=== PATIENT | male | born 1945 | race American Indian/Alaskan Native ===

== ENCOUNTER 2021-11-24 18:25 | Observation (INO) | payer OTHER, MEDICARE ==
[2021-11-25] MEDS ORDERED: ASPIRIN 325 MG TAB PO ONE (03:30)
[2021-11-25] MEDS ORDERED: ONDANSETRON 4 MG/2 ML INJ IV ONE (03:31)
[2021-11-25] MEDS ORDERED: MORPHINE 4 MG/1 ML INJ IV ONE (03:31)
[2021-11-25] MEDS ORDERED: PANTOPRAZOLE 40 MG INJ IV ONE (03:31)
--- NOTE | 2021-11-25 03:37 | Emergency Department Report ---
ED Chest Pain HPI - General Chief Complaint: Chest Pain Stated Complaint: Right shoulder pain, and chest pain Time Seen by Provider: 11/25/21 03:21 Source: patient, EMS ( EMS documentation not available at time of chart dictation ), RN notes reviewed Mode of arrival: Stretcher Limitations: No Limitations - History of Present Illness Initial Comments: This is a pleasant and cooperative 76-year-old gentleman, who reports a history of CAD, with stent, possible hypertension and high cholesterol. He presents to the department today with complaint of right-sided shoulder pain, that radiates to his whole chest and right neck. He denies travel, surgery, immobilization, DVT and pulmonary embolism risk factors. He does report that he smokes cigarettes as well as marijuana. He denies other illicit drug use. Right-sided arm pain and shoulder pain have been going on for some time, but he feels like it got worse recently. The patient reports that he has not done heavy lifting. He denies COVID symptoms. MD Complaint: chest pain -: Gradual Onset: during rest Pain Location: substernal, right chest Pain Radiation: other (Right arm to chest) Severity: moderate Quality: aching Consistency: intermittent Improves With: nitroglycerin Worsens With: nothing Aspirin use within the Past 7 Days: (1) Yes - Related Data Allergies Allergy/AdvReac Type Severity Reaction Status Date / Time No Known Allergies Allergy Unverified 11/24/21 20:02 Heart Score - HEART Score History: Slightly suspicious EKG: Non-specific Age: > 65 Risk factors: > 3 risk factors or hx of atherosclerotic disease Troponin: < normal limit HEART Score: 5 - EKG Read Time Time EKG Completed: 02:12 EKG Read Time: 02:12 - Critical Actions Critical Actions: 4-6 pts:12-16.6% risk of adverse cardiac event. Should be admitted ED Review of Systems ROS: Stated complaint: LT SHOULDER PAIN Other details as noted in HPI Constitutional: denies: fever Eyes: denies: eye discharge ENT: denies: epistaxis Respiratory: denies: wheezing Cardiovascular: chest pain Gastrointestinal: denies: abdominal pain, hematemesis, melena, hematochezia Musculoskeletal: arthralgia, myalgia Neurological: denies: weakness Hematological/Lymphatic: denies: easy bleeding ED Physical Exam - General Limitations: No Limitations General appearance: alert, in no apparent distress - Head Head exam: Present: atraumatic, normocephalic - Eye Eye exam: Present: normal appearance, EOMI. Absent: nystagmus - ENT ENT exam: Present: normal exam, normal orophraynx, mucous membranes moist, normal external ear exam - Neck Neck exam: Present: normal inspection, full ROM. Absent: tenderness, meningismus - Respiratory Respiratory exam: Present: normal lung sounds bilaterally. Absent: respiratory distress, wheezes, rales, rhonchi, stridor - Cardiovascular Cardiovascular Exam: Present: normal rhythm, bradycardia, normal heart sounds. Absent: tachycardia, irregular rhythm, systolic murmur, diastolic murmur, rubs, gallop - GI/Abdominal GI/Abdominal exam: Present: soft. Absent: distended, tenderness, guarding, rebound, rigid, pulsatile mass - Rectal Rectal exam: Present: deferred - Extremities Exam Extremities exam: Present: normal inspection, full ROM (Left arm, and bilateral lower extremities), tenderness (The right shoulder is point tender. There is no redness, pus or streaking), other (2+ pulses noted in the bilateral upper and lower extremities. There is no palpable cord. negative Homans sign. Muscular compartments are soft. The pelvis is stable.). Absent: calf tenderness - Back Exam Back exam: Present: normal inspection. Absent: tenderness, CVA tenderness (R), CVA tenderness (L), paraspinal tenderness, vertebral tenderness - Neurological Exam Neurological exam: Present: alert, oriented X3, normal gait, other (No facial droop. Tongue midline. Extraocular movements intact bilaterally. Facial sensation intact to light touch in V1, V2, V3 distribution bilaterally. 5 and a 5 strength in 4 extremities. Sensation intact to light touch in 4 extremities.). Absent: motor sensory deficit - Psychiatric Psychiatric exam: Present: normal affect, normal mood - Skin Skin exam: Present: warm, dry, intact, normal color. Absent: rash ED Course Vital Signs 11/24/21 11/25/21 11/25/21 19:59 02:08 04:14 Temperature 98.1 F 97.8 F Pulse Rate 58 L 54 L Respiratory 16 18 Rate Blood Pressure 180/98 Blood Pressure 161/83 [Left] O2 Sat by Pulse 99 99 100 Oximetry - Reevaluation(s) Reevaluation #1: 11/25/21 03:36 Differential diagnosis, including not limited to: Arthritis, radiculopathy, EMIGDIO D, gastritis, hiatal hernia, pneumonia, costochondritis, coronary artery disease Assessment and plan: 76-year-old gentleman, who is pleasant, calm and cooperative, [id number], in no acute distress, with acute on chronic reproducible right-sided shoulder and chest wall pain, abnormal EKG, and multiple cardiovascular risk factors. He is not currently tachycardic, tachypneic or hypoxic, he denies DVT and pulmonary embolism risk factors, and he is low risk by Wells criteria for pulmonary embolism. He has equal pulses in the upper lower extremities, with no pulsatile abdominal mass. Highly doubt acute aortic pathology. Chest pain very atypical, however, given age, risk factor profile, abnormal EKG without prior for comparison, he is at moderate risk for major adverse cardiac event as per heart score. Treat symptoms, obtain EKGs, laboratory studies, x-ray the chest, and reassess. Recommend admission to the medical service for cardiac risk stratification. Discussed this plan of care with the patient. He is agreeable to the plan of care Reevaluation #2: 11/25/21 03:37 Hold nitroglycerin given bradycardia 11/25/21 04:42 Patient on cell phone and in no acute distress. 11/25/21 05:15 Dr Rosa John to admit to [facility] MICHAEL score - Michael Score Age > 65: (1) Yes Aspirin use within the Past 7 Days: (1) Yes 3 or more CAD Risk Factors: (1) Yes 2 or more Angina events in past 24 hrs: (0) No Known CAD with more than 50% Stenosis: (0) No Elevated Cardiac Markers: (0) No ST Deviation Greater than 0.5mm: (0) No MICHAEL Score: 3 ED Medical Decision Making - Lab Data Result diagrams: 11/25/21 03:45 11/25/21 03:45 Vital Signs 11/24/21 11/25/21 19:59 02:08 Temperature 98.1 F 97.8 F Pulse Rate 58 L 54 L Respiratory 16 18 Rate Blood Pressure 180/98 Blood Pressure 161/83 [Left] O2 Sat by Pulse 99 99 Oximetry Lab Results 11/25/21 11/25/21 11/25/21 Range/Units 03:45 03:45 03:45 WBC 5.7 (4.5-11.0) K/mm3 RBC 4.90 (3.65-5.03) M/mm3 Hgb 13.9 (11.8-15.2) gm/dl Hct 42.4 (35.5-45.6) % MCV 86 (84-94) fl MCH 28 (28-32) pg MCHC 33 (32-34) % RDW 17.9 H (13.2-15.2) % Plt Count 175 (140-440) K/mm3 Lymph % (Auto) 27.7 (13.4-35.0) % Levy % (Auto) 11.1 H (0.0-7.3) % Eos % (Auto) 2.6 (0.0-4.3) % Baso % (Auto) 0.8 (0.0-1.8) % Lymph # (Auto) 1.6 (1.2-5.4) K/mm3 Levy # (Auto) 0.6 (0.0-0.8) K/mm3 Eos # (Auto) 0.1 (0.0-0.4) K/mm3 Baso # (Auto) 0.0 (0.0-0.1) K/mm3 Seg Neutrophils % 57.8 (40.0-70.0) % Seg Neutrophils # 3.3 (1.8-7.7) K/mm3 PT 12.8 (12.2-14.9) Sec. INR 0.85 L (0.87-1.13) Sodium 141 (137-145) mmol/L Potassium 3.8 (3.6-5.0) mmol/L Chloride 101.8 (98-107) mmol/L Carbon Dioxide 25 (22-30) mmol/L Anion Gap 18 mmol/L BUN 20 (9-20) mg/dL Creatinine 1.2 (0.8-1.3) mg/dL Estimated GFR > 60 ml/min BUN/Creatinine Ratio 17 % Glucose 85 (75-100) mg/dL Calcium 9.7 (8.4-10.2) mg/dL Magnesium 1.70 (1.7-2.3) mg/dL Total Bilirubin 0.70 (0.1-1.2) mg/dL AST 16 (5-40) units/L ALT 9 (7-56) units/L Alkaline Phosphatase 60 (35-129) units/L Total Creatine Kinase 85 (55-170) units/L Troponin T < 0.010 (0.00-0.029) ng/mL Total Protein 6.8 (6.3-8.2) g/dL Albumin 4.6 (3.9-5) g/dL Albumin/Globulin Ratio 2.1 % - EKG Data -: EKG Interpreted by Me Rate: bradycardia - EKG Data When compared to previous EKG there are: previous EKG unavailable 11/25/21 03:35 There is no prior EKG available for comparison. The EKG is interpreted at 02: 1 2 AM. Sinus rhythm, bradycardia, with a rate of 48 bpm. Left axis deviation. QTc 4 2 6 ms. Borderline incomplete left bundle branch block. Abnormal EKG. This is a STEMI. - Radiology Data Radiology results: pending, report reviewed, image reviewed CHEST 1 VIEW 11/25/2021 3:40 AM INDICATION / CLINICAL INFORMATION: Chest Pain. COMPARISON: None available. FINDINGS: SUPPORT DEVICES: None. HEART / MEDIASTINUM: No significant abnormality. LUNGS / PLEURA: No significant pulmonary or pleural abnormality. No pneumothorax. ADDITIONAL FINDINGS: None IMPRESSION: 1. No acute chest process. Signer Name: Hima Acevedo MD Signed: 11/25/2021 2:47 AM Workstation Name: [employer] Critical care attestation.: If time is entered above; I have spent that time in minutes in the direct care of this critically ill patient, excluding procedure time. ED Disposition Clinical Impression: Nonspecific chest pain Disposition: ADMITTED INPATIENT Is pt being admited?: Yes Does the pt Need Aspirin: No Condition: Good Instructions: Nonspecific Chest Pain, Adult Referrals: PRIMARY CARE, [Primary Care Provider] - 3-5 Days
--- NOTE | 2021-11-25 03:51 | XRay Report ---
CHEST 1 VIEW 11/25/2021 3:40 AM INDICATION / CLINICAL INFORMATION: Chest Pain. COMPARISON: None available. FINDINGS: SUPPORT DEVICES: None. HEART / MEDIASTINUM: No significant abnormality. LUNGS / PLEURA: No significant pulmonary or pleural abnormality. No pneumothorax. ADDITIONAL FINDINGS: None IMPRESSION: 1. No acute chest process. Signer Name: Hima Acevedo MD Signed: 11/25/2021 3:47 AM Workstation Name: [email or web address]
[2021-11-25 04:29] LABS: Basophils % (Auto) 0.8 % (0.0-1.8); Eosinophils # (Auto) 0.1 K/mm3 (0.0-0.4); Eosinophils % (Auto) 2.6 % (0.0-4.3); Hematocrit 42.4 % (35.5-45.6); Hemoglobin 13.9 gm/dl (11.8-15.2); Lymphocytes # (Auto) 1.6 K/mm3 (1.2-5.4); Lymphocytes % (Auto) 27.7 % (13.4-35.0); Mean Corpuscular HGB Conc 33 % (32-34); Mean Corpuscular Volume 86 fl (84-94); Monocytes # (Auto) 0.6 K/mm3 (0.0-0.8); Monocytes % (Auto) 11.1 % (0.0-7.3); Platelet Count 175 K/mm3 (140-440); Red Cell Distribution Width 17.9 % (13.2-15.2)
[2021-11-25 04:39] LABS: INR 0.85 (0.87-1.13)
[2021-11-25 04:42] LABS: Alanine Aminotransferase 9 units/L (7-56); Albumin 4.6 g/dL (3.9-5); BUN/Creatinine Ratio 17; Blood Urea Nitrogen 20 mg/dL (9-20); Calcium 9.7 mg/dL (8.4-10.2); Hemolysis Index 9
[2021-11-25] MEDS ORDERED: ONDANSETRON 4 MG/2 ML INJ IV PRN (05:15)
[2021-11-25] MEDS ORDERED: ACETAMINOPHEN 325 MG TAB PO PRN (05:15)
[2021-11-25] MEDS ORDERED: NALOXONE 0.4 MG/1 ML INJ IV PRN (05:15)
[2021-11-25] MEDS ORDERED: MORPHINE 4 MG/1 ML INJ IV PRN (08:11)
[2021-11-25] MEDS ORDERED: oxyCODONE /ACETAMINOPHEN 5-325MG TAB PO PRN (09:00)
[2021-11-25] MEDS ORDERED: MORPHINE 2 MG/1 ML INJ IV PRN (09:00)
[2021-11-25] MEDS ORDERED: REGADENOSON 0.4 MG/5 ML INJ IV ONE (10:24)
[2021-11-25] MEDS ORDERED: DOBUTamine 100 MG in DEXTROSE 5% IN WATER 92 ML IV ONE (12:00)
--- NOTE | 2021-11-25 13:19 | Nuclear Medicine Report ---
APPROVED REPORT Exam: Nuclear Stress Test Indication: Chest pain BMI: 0 Stress Test Details HR Max Heart Rate (APMHR): 145 bpm Target HR (85% APMHR): 123 bpm BP ECG Resting ECG: Sinus Bradycardia Stress ECG: Sinus Rhythm ST Change: None Arrhythmia: None Recovery ECG: Sinus Rhythm Recovery Arrhythmia: None Clinical Reason for Termination: Completed protocol Stress ECG Conclusion Patient had a dobutamine stress test during which he was administered with 5 to 20 mcg of dobutamine and graded increments. ECG and blood pressure were monitored through the infusion. There was no chest pain, no ST changes of ischemia and no dysrhythmias. Thallium was injected at peak dobutamine infusion. The patient then underwent protocol stress imaging. NM EXAM: Myocardial Perfusion REST/STRESS Imaging Protocol: Rest Tc-99m/Stress Tc-99m 1 day Resting Data Rest SPECT myocardial perfusion imaging was performed in supine position 45 minutes following the intravenous injection of 10 mCi of Tc-99m Myoview. Time of rest injection: 0900 Date: 11/25/2021 Pharmacologic Stress Pharmacologic stress test was performed by injecting Dobutamine 6.8 mg IV push followed by the intravenous injection of 28 mCi of Tc-99m Myoview. Time of stress injection: 12:10:13 Date: 11/25/2021 Gated Stress SPECT was performed 30 minutes after stress injection. The images were gated to evaluate regional wall motion and calculate left ventricular ejection fraction. Prone imaging was performed. Study Quality Study: excellent Lung Uptake: Normal Study Data TID = 1.00. Perfusion Wall Motion The rest and stress images show normal left ventricular wall motion. Left ventricular systolic ejection fraction 57%. Nuclear Conclusion ECG Findings: negative for ischemia Clinical Findings: negative for ischemia Nuclear Findings: negative for ischemia Left Ventricular Function: normal Risk Study: low Normal rest and stress myocardial perfusion study, normal left ventricular systolic function, ejection fraction 57%. Conclusion Patient had a dobutamine stress test during which he was administered with 5 to 20 mcg of dobutamine and graded increments. ECG and blood pressure were monitored through the infusion. There was no chest pain, no ST changes of ischemia and no dysrhythmias. Thallium was injected at peak dobutamine infusion. The patient then underwent protocol stress imaging.
--- NOTE | 2021-11-25 13:59 | History and Physical Report ---
History of Present Illness Date of examination: 11/25/21 Date of admission: 11/25/21 05:15 Chief complaint: Chest pain History of present illness: This is a pleasant and cooperative 76-year-old gentleman, who reports a history of CAD, with stent, possible hypertension and high cholesterol. He presents to the department today with complaint of right-sided shoulder pain, that radiates to his whole chest and right neck. He denies travel, surgery, immobilization, DVT and pulmonary embolism risk factors. He does report that he smokes cigarettes as well as marijuana. He denies other illicit drug use. The patient was admitted for chest pain workup. Past History Past Medical History: CAD (with stents), hypertension, hyperlipidemia Past Surgical History: Other (Stent placemenet) Social history: lives with family, smoking, full code Family history: hypertension Medications and Allergies Allergies Allergy/AdvReac Type Severity Reaction Status Date / Time No Known Allergies Allergy Verified 11/25/21 05:18 Active Meds: Active Medications Acetaminophen (Acetaminophen 325 Mg Tab) 650 mg PO Q4H PRN PRN Reason: Pain MILD(1-3)/Fever >100.5/GALAN Dobutamine HCl 100 mg/ (Dextrose) 100 mls @ 20.412 mls/hr IV ONCE ONE; Protocol Stop: 11/25/21 16:53 Last Titration: 11/25/21 12:21 Dose: 0 mcg/kg/min, 0 mls/hr Morphine Sulfate (Morphine 2 Mg/1 Ml Inj) 2 mg IV Q4H PRN PRN Reason: Pain , Severe (7-10) Naloxone HCl (Naloxone 0.4 Mg/1 Ml Inj) 0.1 mg IV Q2MIN PRN PRN Reason: Res Rate </= 8 or 02 SAT < 92% Ondansetron HCl (Ondansetron 4 Mg/2 Ml Inj) 4 mg IV Q8H PRN PRN Reason: Nausea And Vomiting Oxycodone/Acetaminophen (Oxycodone /Acetaminophen 5-325mg Tab) 1 tab PO Q6H PRN PRN Reason: Pain, Moderate (4-6) Sodium Chloride (Sodium Chloride 0.9% 10 Ml Flush Syringe) 10 ml IV BID WERNER Sodium Chloride (Sodium Chloride 0.9% 10 Ml Flush Syringe) 10 ml IV PRN PRN PRN Reason: LINE FLUSH Review of Systems All systems: negative Cardiovascular: chest pain Exam - Constitutional Vitals: Temp Pulse Resp BP Pulse Ox 97.4 F L 52 L 18 166/100 100 11/25/21 09:27 11/25/21 09:27 11/25/21 09:27 11/25/21 12:24 11/25/21 09:27 General appearance: Present: no acute distress, well-nourished - EENT Eyes: Present: PERRL, EOM intact ENT: hearing intact, clear oral mucosa - Neck Neck: Present: supple, normal ROM - Respiratory Respiratory effort: normal - Cardiovascular Rhythm: regular Heart Sounds: Present: S1 & S2 - Extremities Extremities: no ischemia, pulses intact, pulses symmetrical, No edema, normal temperature, normal color Peripheral Pulses: within normal limits - Abdominal General gastrointestinal: Present: soft, non-tender, non-distended, normal bowel sounds Male genitourinary: Present: deferred - Rectal Rectal Exam: deferred - Integumentary Integumentary: Present: clear, warm, dry - Musculoskeletal Musculoskeletal: strength equal bilaterally - Psychiatric Psychiatric: appropriate mood/affect, intact judgment & insight, memory intact, cooperative - Neurologic Neurologic: CNII-XII intact, moves all extremities - Allied Health Allied health notes reviewed: nursing HEART Score - HEART Score EKG: Non-specific Age: > 65 Risk factors: > 3 risk factors or hx of atherosclerotic disease Troponin: Troponin T < 0.010 ng/mL (0.00-0.029) 11/25/21 09:26 Troponin: < normal limit - Critical Actions Critical Actions: 4-6 pts:12-16.6% risk of adverse cardiac event. Should be admitted Results - Labs CBC & Chem 7: 11/25/21 03:45 11/25/21 03:45 Labs: Laboratory Last Values WBC 5.7 K/mm3 (4.5-11.0) 11/25/21 03:45 RBC 4.90 M/mm3 (3.65-5.03) 11/25/21 03:45 Hgb 13.9 gm/dl (11.8-15.2) 11/25/21 03:45 Hct 42.4 % (35.5-45.6) 11/25/21 03:45 MCV 86 fl (84-94) 11/25/21 03:45 MCH 28 pg (28-32) 11/25/21 03:45 MCHC 33 % (32-34) 11/25/21 03:45 RDW 17.9 % (13.2-15.2) H 11/25/21 03:45 Plt Count 175 K/mm3 (140-440) 11/25/21 03:45 Lymph % (Auto) 27.7 % (13.4-35.0) 11/25/21 03:45 Chaves % (Auto) 11.1 % (0.0-7.3) H 11/25/21 03:45 Eos % (Auto) 2.6 % (0.0-4.3) 11/25/21 03:45 Baso % (Auto) 0.8 % (0.0-1.8) 11/25/21 03:45 Lymph # (Auto) 1.6 K/mm3 (1.2-5.4) 11/25/21 03:45 Chaves # (Auto) 0.6 K/mm3 (0.0-0.8) 11/25/21 03:45 Eos # (Auto) 0.1 K/mm3 (0.0-0.4) 11/25/21 03:45 Baso # (Auto) 0.0 K/mm3 (0.0-0.1) 11/25/21 03:45 Seg Neutrophils % 57.8 % (40.0-70.0) 11/25/21 03:45 Seg Neutrophils # 3.3 K/mm3 (1.8-7.7) 11/25/21 03:45 PT 12.8 Sec. (12.2-14.9) 11/25/21 03:45 INR 0.85 (0.87-1.13) L 11/25/21 03:45 Sodium 141 mmol/L (137-145) 11/25/21 03:45 Potassium 3.8 mmol/L (3.6-5.0) 11/25/21 03:45 Chloride 101.8 mmol/L (98-107) 11/25/21 03:45 Carbon Dioxide 25 mmol/L (22-30) 11/25/21 03:45 Anion Gap 18 mmol/L 11/25/21 03:45 BUN 20 mg/dL (9-20) 11/25/21 03:45 Creatinine 1.2 mg/dL (0.8-1.3) 11/25/21 03:45 Estimated GFR > 60 ml/min 11/25/21 03:45 BUN/Creatinine Ratio 17 % 11/25/21 03:45 Glucose 85 mg/dL (75-100) 11/25/21 03:45 Calcium 9.7 mg/dL (8.4-10.2) 11/25/21 03:45 Magnesium 1.70 mg/dL (1.7-2.3) 11/25/21 03:45 Total Bilirubin 0.70 mg/dL (0.1-1.2) 11/25/21 03:45 AST 16 units/L (5-40) 11/25/21 03:45 ALT 9 units/L (7-56) 11/25/21 03:45 Alkaline Phosphatase 60 units/L (35-129) 11/25/21 03:45 Total Creatine Kinase 85 units/L (55-170) 11/25/21 03:45 Troponin T < 0.010 ng/mL (0.00-0.029) 11/25/21 09:26 Total Protein 6.8 g/dL (6.3-8.2) 11/25/21 03:45 Albumin 4.6 g/dL (3.9-5) 11/25/21 03:45 Albumin/Globulin Ratio 2.1 % 11/25/21 03:45 Assessment and Plan Assessment and plan: This is a pleasant and cooperative 76-year-old gentleman, who reports a history of CAD, with stent, possible hypertension and high cholesterol. He presents to the department today with complaint of right-sided shoulder pain, that radiates to his whole chest and right neck. He denies travel, surgery, immobilization, DVT and pulmonary embolism risk factors. He does report that he smokes cigarettes as well as marijuana. He denies other illicit drug use. #Atypical chest pain - unremarkable troponins x2 - unremarkable EKG - myocardial perfusion test/Lexiscan (11/25/2021) found to be unremarkable for ischemia #Hypertension - continue home medications #Hyperlipidemia - continue home medications #Advanced care planning -Disease education conducted, care plan discussed, diagnoses discussed, prognosis discussed, and patient acknowledges understanding with care plan -Time: +30 min Advance Directives: No VTE prophylaxis?: Not ordered Contraindication Mechanical VTE Prophylaxis: Treatment Not Indicated Plan of care discussed with patient/family: Yes
--- NOTE | 2021-11-25 14:05 | Discharge Summary ---
Providers - Providers Date of Admission: 11/25/21 05:15 Date of discharge: 11/25/21 Attending physician: AVILA GALARZA MD Primary care physician: SUMO WRESTLER Hospitalization Reason for admission: Atypical chest pain Condition: Good Pertinent studies: Reviewed. Procedures: Myocardial perfusion scan Hospital course: This is a pleasant and cooperative 76-year-old gentleman, who reports a history of CAD, with stent, possible hypertension and high cholesterol. He presents to the department today with complaint of right-sided shoulder pain, that radiates to his whole chest and right neck. He denies travel, surgery, immobilization, DVT and pulmonary embolism risk factors. He does report that he smokes cigarettes as well as marijuana. He denies other illicit drug use. The patient was admitted for chest pain workup. The patient underwent myocardial perfusion scan (11/25/2021) that was found to be unremarkable. The patient is medically cleared for discharge. Disposition: 01 HOME / SELF CARE / HOMELESS Final Discharge Diagnosis (Prints w/discharge instructions): Atypical chest pain, hypertension, hyperlipidemia Time spent for discharge: 45 min Core Measure Documentation - Palliative Care Palliative Care/ Comfort Measures: Not Applicable - Core Measures Any of the following diagnoses?: none Exam - Constitutional Vitals: Temp Pulse Resp BP Pulse Ox 97.4 F L 52 L 18 166/100 100 11/25/21 09:27 11/25/21 09:27 11/25/21 09:27 11/25/21 12:24 11/25/21 09:27 General appearance: Present: no acute distress, well-nourished - EENT Eyes: Present: PERRL, EOM intact ENT: hearing intact, clear oral mucosa - Neck Neck: Present: supple, normal ROM - Respiratory Respiratory effort: normal Respiratory: bilateral: CTA - Cardiovascular Rhythm: regular Heart Sounds: Present: S1 & S2 - Extremities Extremities: no ischemia, pulses intact, pulses symmetrical, No edema, normal temperature, normal color Peripheral Pulses: within normal limits - Abdominal General gastrointestinal: Present: soft, non-tender, non-distended, normal bowel sounds Male genitourinary: Present: deferred - Rectal Rectal Exam: deferred - Integumentary Integumentary: Present: clear, warm, dry - Musculoskeletal Musculoskeletal: strength equal bilaterally - Psychiatric Psychiatric: appropriate mood/affect, intact judgment & insight, memory intact, cooperative - Neurologic Neurologic: CNII-XII intact, moves all extremities - Allied Health Allied health notes reviewed: nursing Plan Activity: advance as tolerated Diet: low salt Additional Instructions: This is a pleasant and cooperative 76-year-old gentleman, who reports a history of CAD, with stent, possible hypertension and high cholesterol. He presents to the department today with complaint of right- sided shoulder pain, that radiates to his whole chest and right neck. He denies travel, surgery, immobilization, DVT and pulmonary embolism risk factors. He does report that he smokes cigarettes as well as marijuana. He denies other illicit drug use. The patient was admitted for chest pain workup. The patient underwent myocardial perfusion scan (11/25/2021) that was found to be unremarkable. The patient is medically cleared for discharge. Care Plan Goals: Patient is medically cleared for discharge. Assessment: This is a pleasant and cooperative 76-year-old gentleman, who reports a history of CAD, with stent, possible hypertension and high cholesterol. He presents to the department today with complaint of right-sided shoulder pain, that radiates to his whole chest and right neck. He denies travel, surgery, immobilization, DVT and pulmonary embolism risk factors. He does report that he smokes cigare ttes as well as marijuana. He denies other illicit drug use. The patient was admitted for chest pain workup. The patient underwent myocardial perfusion scan (11/25/2021) that was found to be unremarkable. The patient is medically cleared for discharge. Follow up with: PRIMARY MD CHANA [Primary Care Provider] - 3-5 Days
[2021-11-25] MEDS ORDERED: LOSARTAN 25 MG TAB PO SCH (16:00)
[2021-11-25] MEDS ORDERED: NIFEdipine XL 60 MG TAB PO SCH (16:00)
[2021-11-25 17:44] VITALS: BP 160/94
--- NOTE | 2021-11-28 12:41 | Electrocardiograph Report ---
[facility] Test Date: 2021-11-25 Test Time: 02:12:01 Pat Name: MING GOMEZ Department: Room: A482 1 Gender: M [employer] Superintendent: TREY : 1945 Requested By: TASNEEM LUNA Order Number: [id number] Reading MD: Epi Trujillo Measurements Intervals [place] Rate: 48 P: 77 UT: 160 QRS: -69 QRSD: 116 T: -38 QT: 478 QTc: 426 Interpretive Statements Sinus bradycardia Incomplete left bundle branch block Left ventricular hypertrophy No previous ECG available for comparison Electronically Signed On 11-28-2021 9:40:44 PDT by Epi Trujillo
== END 2021-11-25 17:43 | disposition home or self-care (01) ==
LOC: ED 18:25 → 4A 11-25 05:15
PROVIDERS: ADMIT Internal Medicine Geriatric Medicine; ATTEND Hospitalist
DX: R07.89 Other chest pain (principal); I10 Essential (primary) hypertension; E78.5 Hyperlipidemia, unspecified; I25.10 Atherosclerotic heart disease of native coronary artery without angina pectoris; Z95.1 Presence of aortocoronary bypass graft
CPT/HCPCS: 36415; 71045; 78452; 80053; 82550; 83735; 84484; 85025; 85610; 93005; 93017; 96365; 96366; 96375; 99285; A9502; C9113; G0378; J1250; J2270; J2405; J7060; 96374; J2785